=== PATIENT | male | born 1930 | race Caucasian/White ===

== ENCOUNTER 2016-03-31 10:13 | Inpatient (IN) | payer MEDICARE, OTHER ==
[~2016-03-31] VITALS: Ht 167.6 cm; Wt 63.5 kg
[~2016-03-31 10:13] MED LIST: AMIODARONE HCL100 MG ORAL; ASPIRIN81 M3 PO; COUMADIN1 MG ORAL; DEXILANT30 MG ORAL; METOPROLOL SUC200 MG ORAL; METOPROLOL SUCC25 MG ORAL; PROTONIX40 MG ORAL; REMERON15 M1 ORAL; SINEMET 25-1001 EAC1 ORAL; SINGULAIR10 MG ORAL; SINGULAIR4 M3 ORAL
[2016-03-31 10:30] VITALS: BP 168/76
[2016-03-31] MEDS ORDERED: Morphine Sulfate 4mg/ml Inj IVP ONE (11:00)
--- NOTE | 2016-03-31 11:17 | Emergency Room Report ---
History of Present Illness General Chief Complaint: Abdominal Pain Source: Patient, Family Member Present Illness HPI 85 YOM with parkinsons sent from PMD office Dr Vera for 1 week of RLQ pain and "rebound tenderness." Assoc with constipation for 2 days. Denies assoc n/v /d/fever/chills. ?past appendectomy; family denies previous other surgeries. No other known PMHx. Denies urinary complaints, previous hospitalization. Allergies: Coded Allergies: PENICILLINS (Unverified Adverse Reaction, Unknown, 06/18/15) Patient History Past Medical History: other - parkinsons Past Surgical History: appy Pertinent Family History: none Social History: Denies: alcohol use, drug use, smoking Immunizations: UTD Reviewed Nursing Documentation: PSxH: Agreed Nursing Documentation-PMH Past Medical History: No History, Except For Hx Hypertension: Yes Hx Pacemaker: Yes Hx Parkinson's Disease: Yes Review of Systems All Other Systems: negative except mentioned in HPI Physical Exam Vital Signs Date Time Temp Pulse Resp B/P Pulse Ox O2 Delivery O2 Flow Rate FiO2 03/31/16 10:19 98.1 70 14 141/73 98 Room Air Sp02 EP Interpretation: reviewed, normal General Appearance: normal inspection, well appearing, no apparent distress, alert Head: normocephalic, atraumatic Eyes: bilateral eye EOMI, bilateral eye PERRL ENT: normal ENT inspection, hearing grossly normal, normal voice Neck: normal inspection, full range of motion, supple, no bony tend Respiratory: normal inspection, lungs clear, normal breath sounds, no respiratory distress, no retraction, no wheezing Cardiovascular #1: regular rate, rhythm, no edema Gastrointestinal: normal inspection, normal bowel sounds, soft, no mass, no guarding, no hernia, no rebound, other - Mild RLQ ttp. No rebound, guarding. No palpable hernia in inguinal area. No overlying erythema. Genitourinary: no CVA tenderness Musculoskeletal: normal inspection, back normal, normal range of motion, Marquis' s Sign negative Neurologic: normal inspection, alert, oriented x3, responsive, front desk host III-XII nml as tested, motor strength/tone normal, speech normal Psychiatric: normal inspection, judgement/insight normal, mood/affect normal Skin: normal inspection, normal color, no rash Medical Decision Making Medicare Attestation I Kamilah Dick MD hereby attest that the medical record entry for date of service, 03/08/16 accurately reflects signatures/notations that I made in my capacity as MD when I treated/diagnosed the above listed Medicare beneficiary. I attest that this information is true, accurate and complete to the best of my knowledge. I understand that any falsification, omission, or concealment of material fact may subject me to administrative, civil, or criminal liability. This patient warrants hospital admission for extreme of age and has a condition that cannot be treated as outpatient. Diagnostic Impression: Primary Impression: Abdominal pain Qualified Codes: R10.31 - Right lower quadrant pain ER Course RLQ abd pain for 1 week. VSS. Afebrile focal ttp on exam. No peritoneal abdomen PLAN Cardiac, O2 monitor, IV access, Labs, CTAP, EKG EKG Diagnostic Results Rate: normal Rhythm: NSR ASA given to the pt in ED: No Rhythm Strip Diag. Results EP Interpretation: yes Rate: 70 Rhythm: NSR, no PVC's, no ectopy Last Vital Signs Date Time Temp Pulse Resp B/P Pulse Ox O2 Delivery O2 Flow Rate FiO2 03/31/16 10:30 98.0 70 15 168/76 99 Room Air Status: improved Reevaluation Impression Labs: No leuks. CMP normal. UA does not show infection CTAP: possible strangulation of right femoral vs inguinal hernia with stranding. No SBO. IV Abx and IVF given in ED Consulted Dr Gr at 1245pm for evaluation of possible strangulated right inguinal/femoral hernia Endorsed to Dr Brooks at 114pm (requested by FRANCISCO Vera). Disposition: ADMITTED INPATIENT Condition: Critical KAMILAH DICK M.D. Mar 31, 2016 11:17
[2016-03-31 11:27] LABS: BASOPHILS % (AUTO) 1.1 % (0.0-2.0); EOSINOPHILS % (AUTO) 1.4 % (0.0-3.0); LYMPHOCYTES % (AUTO) 13.5 % (20.0-45.0); MEAN CORPUSCULAR HEMOGLOBIN 31.3 PG (27.0-31.0); MEAN CORPUSCULAR HGB CONC 32.9 G/DL (32.0-36.0); MEAN CORPUSCULAR VOLUME 95 FL (80-99); MONOCYTES % (AUTO) 7.3 % (1.0-10.0); NEUTROPHILS % (AUTO) 76.7 % (45.0-75.0); PLATELET COUNT 140 K/UL (150-450); RED BLOOD COUNT 4.36 M/UL (4.70-6.10); RED CELL DISTRIBUTION WIDTH 12.3 % (11.6-14.8); WHITE BLOOD COUNT 6.2 K/UL (4.8-10.8)
[2016-03-31 11:33] LABS: APPEARANCE,URINE CLEAR; KETONES,URINE NEGATIVE (NEGATIVE); LEUKOCYTE ESTERASE ,URINE NEGATIVE (NEGATIVE); NITRITE,URINE NEGATIVE (NEGATIVE); PH,URINE 7 (4.5-8.0); PROTEIN,URINE NEGATIVE (NEGATIVE); UROBILINOGEN,URINE 1 MG/DL (0.0-1.0)
[2016-03-31 11:44] LABS: ALANINE AMINOTRANSFERASE 8 U/L (3-41); ALBUMIN/GLOBULIN RATIO 1.3 (1.0-2.7); ANION GAP 14 (5-15); ASPARTATE AMINO TRANSFERASE 20 U/L (5-40); CALCIUM 9.3 mg/dL (8.6-10.2); CARBON DIOXIDE 27 mEQ/L (20-30); CHLORIDE 93 mEQ/L (98-107); HEMOLYSIS 39; LIPASE 37 U/L (< 60); POTASSIUM 4.9 mEQ/L (3.4-4.9); SODIUM 134 mEQ/L (135-145); TOTAL PROTEIN 7.6 g/dL (6.6-8.7)
[2016-03-31 12:17] VITALS: BP 161/70
--- NOTE | 2016-03-31 12:30 | Diagnostic Imaging Report ---
Indications: Abdominal pain Technique: Continuous helical CT imaging of the abdomen and pelvis was performed with automatic exposure control following administration of nonionic IV contrast only, on a Siemens sensation [address] scanner. Axial and coronal images were reconstructed at 5 mm slice thickness. No oral contrast was administered per requesting physician's order, despite no contraindications listed in either submitted clinical data or tech note.. CTDI volume(s): 19 mGy Total DLP: 1016 mGy-cm Findings: Comparison: None Lack of oral contrast limits evaluation of gastrointestinal tract. Variable fecal distention of colon and rectum. Remainder of tract nondilated. Appendix not identified. Surgical clips adjacent to esophagogastric junction and gastric antrum. No obvious mural thickening, adjacent stranding, extraluminal gas or fluid collections. Gallbladder absent. Surgical clips in gallbladder fossa. Mild diffuse dilation of bile ducts without obvious associated stone or mass. Mild diffuse atrophy the pancreas. Multiple circumscribed low attenuation masses in both renal cortices, largest on right 7 cm. Smaller exophytic lesion on the left demonstrates partial mural calcification. Scattered arterial mural calcifications without obvious flow-limiting stenosis or occlusion. Hydronephrosis or 4P now a prosthesis in right iliac fossa. Small knuckle of urinary bladder protrudes into left inguinal versus femoral hernia. Mild adjacent stranding. Prostate, seminal vesicles absent. Multiple surgical clips in prostatic bed and along both iliac vessels. Additional surgical clips in the region of right inguinal canal. Remainder visualized pelvic anatomy demonstrates no other obvious acute abnormality. Increased interstitial markings and dependent portions both lung bases. Heart enlarged with right chamber pacemaker leads. Multilevel disc space narrowing with marginal osteophyte formation, vacuum phenomenon throughout lumbar, lower thoracic spine. No focal skeletal lesions are identified. IMPRESSION: Knuckle of urinary bladder incorporated into the left inguinal versus femoral hernia. Associated stranding is nonspecific but could represent strangulation or cystitis. Correlate clinically. No other evidence of acute abdominopelvic disease, limited by lack of oral contrast. Subtle but potentially significant abnormalities may be missed. Repeat CT scan with full oral and IV contrast preparation recommended for more complete evaluation, as clinically indicated Nonvisualization of appendix. No evidence of acute appendicitis. Previous gastric surgery, cholecystectomy, radical prostatectomy, placement of penile prosthesis, placement of pacemaker Bile duct dilation likely secondary to above. Correlate clinically. Pancreatic atrophy Bilateral renal cortical cysts Arteriosclerosis Constipation Nonspecific pulmonary bibasal interstitial prominence Cardiomegaly Degenerative spondylosis
[2016-03-31] MEDS ORDERED: Clindamycin 600mg 50 ML IVPB ONE (13:00)
[2016-03-31] MEDS ORDERED: MULTIVITAMINS1 EAC8 ORAL (13:23)
[2016-03-31] MEDS ORDERED: B-12 KIT1000 MCG/1 IJ (13:23)
[2016-03-31] MEDS ORDERED: SINEMET 25-1001 EAC1 ORAL (13:24)
[2016-03-31] MEDS ORDERED: DEXILANT60 MG ORAL (13:24)
[2016-03-31] MEDS ORDERED: LR 1000ml 1,000 ML IV SCH (13:45)
[2016-03-31 14:45] VITALS: BP 161/84
[2016-03-31] MEDS ORDERED: Morphine Sulfate 2mg/ml Inj IVP PRN (15:45)
[2016-03-31] MEDS ORDERED: D5 1/2NS w/KCl 20mEq 1,000 ML IV SCH (17:00)
[2016-03-31 18:07] VITALS: BP 164/86
[2016-03-31] MEDS: Amiodarone 200mg tab ORAL SCH (18:40)
[2016-03-31] MEDS: Multivitamin w/Minerals tab ORAL SCH (18:40)
[2016-03-31] MEDS: Sinemet 25/100 tab ORAL SCH (18:40)
[2016-03-31] MEDS: Aspirin Baby 81mg ORAL SCH (18:41)
[2016-03-31] MEDS: D5 1/2NS 1,000 ML IV SCH (18:42)
--- NOTE | 2016-03-31 18:57 | General Progress Note ---
Progress Note Progress Note Chart reviewed, pt examined. Pt has a fecal impaction. The CT finding of a left inguinal hernia with protrusion of a knuckle of urinary bladder is probably a chronic finding. We will need to correct his fecal impaction. There is no need for emergency surgery. Yaniv Gr MD Mar 31, 2016 18:57
[2016-03-31 20:00] VITALS: BP 151/78
[2016-03-31] MEDS: Heparin 5000 units/ml inj SUBQ SCH (21:17)
[2016-03-31] MEDS: Montelukast 10mg tablet ORAL SCH (21:17)
[2016-03-31] MEDS: Miralax 17gm pkt ORAL SCH (23:03)
--- NOTE | 2016-03-31 23:48 | Consultation ---
DATE OF CONSULTATION: 03/31/2016 SURGICAL CONSULTATION REASON FOR CONSULTATION: Abdominal pain and possible strangulated left inguinal hernia. HISTORY OF PRESENT ILLNESS: The patient is an 85-year-old [place] male, who presented with a one-week history of the right lower quadrant abdominal pain associated with a three-day history of obstipation. He denied any symptoms of nausea, vomiting, fever, or chills. He has a history of urinary incontinence. PAST MEDICAL HISTORY: Previous surgery includes a partial gastrectomy 30 years ago for peptic ulcer disease. Other surgery includes an open prostatectomy 20 years ago. He underwent a right inguinal hernia repair 15 years ago. The patient also had a previous cholecystectomy. Medical problems include Parkinson disease for 10 years. There is a history of asthma as well. Other surgery includes a pacemaker placement 10 years ago. MEDICATIONS: Include amiodarone 100 mg every 8 hours, aspirin 81 mg daily, Sinemet 25 to 100 mg three times a day, vitamin B12 1000 mcg every two weeks, Dexilant 30 mg daily, metoprolol 200 mg extended release one tablet daily, Remeron 15 mg at bedtime, Singulair 4 mg daily and 10 mg at bedtime, multivitamin one tablet daily, Protonix 40 mg daily, and Coumadin 1 mg daily. ALLERGIES: Penicillin. SOCIAL HISTORY: Tobacco, none. Alcohol, none. FAMILY HISTORY: Negative for diabetes, heart disease, or malignancy. REVIEW OF SYSTEMS: Includes occasional wheezing secondary to asthma. There is no history of angina. The patient denies any symptoms of left inguinal pain. He does have urinary incontinence. PHYSICAL EXAMINATION: GENERAL: Reveals an elderly white male, in no acute distress. VITAL SIGNS: Blood pressure 151/84, pulse 70, and respirations 12. HEENT: Normocephalic. Pupils are equal and reactive to light. There was no scleral icterus. NECK: Supple without adenopathy. LUNGS: Clear. HEART: Showed a regular rhythm. There is a pacemaker in place in the left upper chest wall. ABDOMEN: Abdomen was flat. There is an epigastric midline scar. There is a lower midline scar as well. There were no masses or tenderness. Palpation of the left inguinal region reveals some elements of a small inguinal hernia that is partially reducible. There is some tenderness noted on palpation in this area, but no evidence of an incarcerated or strangulated hernia. There was no evidence of a femoral hernia bilaterally. RECTAL: Rectal exam showed normal sphincter tone. There is soft doughy stool in the rectal vault. ADMISSION LABS: CBC showed a white blood count of 6200, hemoglobin 13.6 grams percent, hematocrit 41.4%, and platelet count 140,000. Urinalysis was negative. There was no blood. Dip stick was negative. There was 1+ urobilinogen. Leukocyte esterase is negative. Clinical chemistry showed a sodium of 134, potassium 4.9, chloride 93, bicarbonate 27, BUN 23, creatinine 1.0, glucose 103, and calcium 9.3. Total bilirubin 0.6. SGOT 8, SGPT 20, and alkaline phosphatase normal at 58. Lipase normal at 37. A CT scan of the abdomen and pelvis showed a knuckle of the urinary bladder incorporated into the left inguinal hernia. There was associated stranding, which is nonspecific. There was no evidence of intestinal obstruction. The gallbladder was surgically absent. There were surgical clips adjacent to the esophagogastric junction and gastric antrum. There was evidence of a previous radical prostatectomy as well as a penile prosthesis and the pacemaker was noted with leads in the right atrium. IMPRESSION: 1. Fecal impaction. 2. Left inguinal hernia with protrusion of a knuckle of the urinary bladder, probably chronic. PLAN: There is no need for emergency surgery in the setting. The patient will need enemas and/or laxatives to relieve his fecal impaction. He will need to continue his medications for his Parkinson disease and hypertension. Yaniv Gr M.D. DR: DAYO JOB#: [id number] CC:
[2016-03-31 23:54] VITALS: BP 106/61
[2016-04-01 04:00] VITALS: BP 95/56
[2016-04-01] MEDS: D5 1/2NS 1,000 ML IV SCH ×2 (05:01→19:10)
[2016-04-01] MEDS: Heparin 5000 units/ml inj SUBQ SCH ×3 (05:07→21:32)
[2016-04-01 06:55] LABS: EOSINOPHILS % (AUTO) 2.8 % (0.0-3.0); LYMPHOCYTES % (AUTO) 19.2 % (20.0-45.0); MEAN CORPUSCULAR HEMOGLOBIN 31.7 PG (27.0-31.0); MEAN CORPUSCULAR HGB CONC 33.8 G/DL (32.0-36.0); MEAN CORPUSCULAR VOLUME 94 FL (80-99); MONOCYTES % (AUTO) 13.1 % (1.0-10.0); NEUTROPHILS % (AUTO) 63.8 % (45.0-75.0); PLATELET COUNT 131 K/UL (150-450); RED BLOOD COUNT 3.91 M/UL (4.70-6.10); RED CELL DISTRIBUTION WIDTH 12.5 % (11.6-14.8)
[2016-04-01 06:57] LABS: ALBUMIN/GLOBULIN RATIO 1.3 (1.0-2.7); ANION GAP 10 (5-15); ASPARTATE AMINO TRANSFERASE 16 U/L (5-40); CALCIUM 8.4 mg/dL (8.6-10.2); CARBON DIOXIDE 28 mEQ/L (20-30); CHLORIDE 100 mEQ/L (98-107); CREATININE 0.9 mg/dL (0.7-1.2); HEMOLYSIS 9; POTASSIUM 4.4 mEQ/L (3.4-4.9); SODIUM 138 mEQ/L (135-145); TOTAL PROTEIN 6.1 g/dL (6.6-8.7)
[2016-04-01 06:58] LABS: ALANINE AMINOTRANSFERASE < 5 U/L (3-41)
[2016-04-01] MEDS ORDERED: Fleet's Mineral Oil Enema RECTAL ONE ×2 (08:30)
[2016-04-01 08:46] VITALS: BP 135/90
[2016-04-01] MEDS: Amiodarone 200mg tab ORAL SCH ×2 (09:00→11:50)
[2016-04-01] MEDS: Docusate 100mg cap ORAL SCH ×3 (09:01→18:06)
[2016-04-01] MEDS: Aspirin Baby 81mg ORAL SCH (09:01)
[2016-04-01] MEDS: Sinemet 25/100 tab ORAL SCH ×3 (09:01→18:06)
[2016-04-01] MEDS: Multivitamin w/Minerals tab ORAL SCH (09:02)
[2016-04-01] MEDS: Pantoprazole Inj IV SCH (09:20)
--- NOTE | 2016-04-01 10:19 | General Progress Note ---
Progress Note Progress Note Afebrile. Pt is awake, has some pain in right lower abdomen. He has not had a BM yet. Abdomen is mildly distended but soft, left inguinal region is not tender. CT scan was reviewed with the radiologist. The left inguinal bladder herniation appears to be a chronic problem. Case was discussed with Dr Villeda, we will try magnesium sulfate to relieve his obstipation. Yaniv Gr MD Apr 01, 2016 10:19
[2016-04-01] MEDS ORDERED: Magnesium Citrate Liq Btl ORAL ONE (11:00)
[2016-04-01 12:46] VITALS: BP 135/75
--- NOTE | 2016-04-01 13:31 | History and Physical ---
LeslieBreana Kruegeroi NElva 04/01/16 1331: History of Present Illness General Date patient seen: Apr 01, 2016 Time patient seen: 10:00 Reason for Hospitalization: Abdominal Pain Present Illness HPI HISTORY OF PRESENT ILLNESS: The patient is an 85-year-old [place] male, who presented with a one-week history of the right lower quadrant abdominal pain associated with a three-day history of obstipation. He denied any symptoms of nausea, vomiting, fever, or chills. He has a history of urinary incontinence. Allergies: Coded Allergies: PENICILLINS (Unverified Adverse Reaction, Unknown, 06/18/15) Medication History Scheduled Amiodarone Hcl (Amiodarone Hcl), Unknown Dose ORAL EVERY 8 HOURS, (Reported) Amiodarone Hcl (Amiodarone Hcl), 150 MG ORAL DAILY, (Reported) Amiodarone Hcl (Amiodarone Hcl), 100 MG ORAL DAILY, (Reported) Carbidopa/Levodopa 25-100 Mg* (Sinemet 25-100 Mg Tablet*), 3 TAB ORAL THREE TIMES A DAY, (Reported) Carbidopa/Levodopa 25-100 Mg* (Sinemet 25-100 Mg Tablet*), 3 TAB ORAL THREE TIMES A DAY, (Reported) Cyanocobalamin (Vitamin B-12) (B-12 Kit), 1,000 MCG IJ EVERY 2 WEEKS, (Reported) Dexlansoprazole (Dexilant), Unknown Dose ORAL DAILY, (Reported) Dexlansoprazole (Dexilant), 60 MG ORAL DAILY, (Reported) Metoprolol Succinate (Metoprolol Succinate), Unknown Dose ORAL DAILY, (Reported) Metoprolol Succinate* (Metoprolol Succinate*), 25 MG ORAL DAILY, (Reported) Mirtazapine (Remeron), Unknown Dose ORAL BEDTIME, (Reported) Montelukast Sodium (Singulair), Unknown Dose ORAL DAILY, (Reported) Montelukast Sodium* (Singulair*), 10 MG ORAL BEDTIME, (Reported) Multivitamin With Minerals (Multivitamins With Minerals*), 1 TAB ORAL DAILY, ( Reported) Pantoprazole* (Protonix*), 40 MG ORAL DAILY, (Reported) Warfarin Sod* (Coumadin*), Unknown Dose ORAL DAILY, (Reported) Miscellaneous Medications Aspirin (Aspirin), 81 MG PO, (Reported) Patient History Limited by: medical condition History Provided By: Patient, Medical Record Healthcare decision maker KAMILAH NORMA Resuscitation status FULL Advanced Directive on File Patient History Narrative PAST MEDICAL HISTORY: Previous surgery includes a partial gastrectomy 30 years ago for peptic ulcer disease. Other surgery includes an open prostatectomy 20 years ago. He underwent a right inguinal hernia repair 15 years ago. The patient also had a previous cholecystectomy. Medical problems include Parkinson disease for 10 years. There is a history of asthma as well. Other surgery includes a pacemaker placement 10 years ago. Review of Systems All Other Systems: negative except mentioned in HPI Physical Exam General Appearance: no apparent distress, alert, thin Lines, tubes and drains: peripheral HEENT: normocephalic, supple Neck: non-tender, supple Respiratory/Chest: lungs clear, normal breath sounds, no respiratory distress Cardiovascular/Chest: normal rate Abdomen: normal bowel sounds, non tender, soft, distended, other - RLQ mild distention Extremities: non-tender, normal capillary refill Skin Exam: normal pigmentation, warm/dry Neurologic: alert, oriented x 3 Last 24 Hour Vital Signs Date Time Temp Pulse Resp B/P Pulse Ox O2 Delivery O2 Flow Rate FiO2 04/01/16 12:46 96.1 89 18 135/75 97 Room Air 04/01/16 09:01 64 135/90 04/01/16 08:46 97.0 64 19 135/90 97 Room Air 04/01/16 04:00 96.4 80 18 95/56 94 Room Air 03/31/16 23:54 97.5 111 18 106/61 96 Room Air 03/31/16 20:00 97.7 71 20 151/78 95 Room Air 03/31/16 18:41 70 164/86 03/31/16 18:07 97.5 70 20 164/86 96 Room Air 03/31/16 14:45 70 12 161/84 98 Room Air 03/31/16 14:16 70 12 174/79 98 Room Air Intake and Output 03/31/16 04/01/16 19:00 07:00 Intake Total 0 ml 825 ml Output Total 925 ml Balance 0 ml -100 ml Intake Oral 0 ml IV Total 825 ml Output Urine Total 925 ml # Voids 3 Laboratory Tests Test 04/01/16 05:20 White Blood Count 5.0 K/UL (4.8-10.8) Red Blood Count 3.91 M/UL (4.70-6.10) L Hemoglobin 12.4 G/DL (14.2-18.0) L Hematocrit 36.7 % (42.0-52.0) L Mean Corpuscular Volume 94 FL (80-99) Mean Corpuscular Hemoglobin 31.7 PG (27.0-31.0) H Mean Corpuscular Hemoglobin Concent 33.8 G/DL (32.0-36.0) Red Cell Distribution Width 12.5 % (11.6-14.8) Platelet Count 131 K/UL (150-450) L Mean Platelet Volume 9.0 FL (6.5-10.1) Neutrophils (%) (Auto) 63.8 % (45.0-75.0) Lymphocytes (%) (Auto) 19.2 % (20.0-45.0) L Monocytes (%) (Auto) 13.1 % (1.0-10.0) H Eosinophils (%) (Auto) 2.8 % (0.0-3.0) Basophils (%) (Auto) 1.0 % (0.0-2.0) Sodium Level 138 mEQ/L (135-145) Potassium Level 4.4 mEQ/L (3.4-4.9) Chloride Level 100 mEQ/L (98-107) Carbon Dioxide Level 28 mEQ/L (20-30) Anion Gap 10 (5-15) Blood Urea Nitrogen 16 mg/dL (7-23) Creatinine 0.9 mg/dL (0.7-1.2) Estimat Glomerular Filtration Rate mL/min (>60) Glucose Level 127 mg/dL (74-106) H Calcium Level 8.4 mg/dL (8.6-10.2) L Total Bilirubin 0.6 mg/dL (0.0-1.2) Aspartate Amino Transf (AST/SGOT) 16 U/L (5-40) Alanine Aminotransferase (ALT/SGPT) < 5 U/L (3-41) Alkaline Phosphatase 49 U/L (40-129) Total Protein 6.1 g/dL (6.6-8.7) L Albumin 3.5 g/dL (3.5-5.2) Globulin 2.6 g/dL Albumin/Globulin Ratio 1.3 (1.0-2.7) Microbiology Date/Time Source Procedure Growth Status 03/31/16 21:30 Straight Cath Urine Culture Pending Received Height (Feet): 5 Height (Inches): 6.00 Weight (Pounds): 140 Medications Current Medications Medications (Trade) Dose Ordered Sig/Jaquelin Route PRN Reason Start Time Stop Time Status Last Admin Dose Admin Amiodarone HCl (Cordarone) 100 mg DAILY ORAL 03/31/16 17:00 04/30/16 16:59 04/01/16 11:50 Aspirin (ASA) 81 mg DAILY ORAL 03/31/16 17:00 04/30/16 16:59 04/01/16 09:01 Carbidopa/Levodopa (Sinemet 25/100) 3 ea THREE TIMES A DAY ORAL 03/31/16 18:00 04/30/16 17:59 04/01/16 09:01 Cyanocobalamin 1000 mcg 1,000 mcg [id number] IM 04/11/16 09:00 05/11/16 08:59 Dextrose (Dextrose 50%) STAT PRN IV Hypoglycemia 03/31/16 15:45 04/30/16 15:44 Dextrose/Sodium Chloride (D5 0.45% NS) 1,000 ml @ 75 mls/hr [id number] IV 03/31/16 16:30 04/30/16 16:29 04/01/16 05:01 Docusate Sodium (Colace) 100 mg THREE TIMES A DAY ORAL 04/01/16 09:00 05/01/16 08:59 04/01/16 09:01 Heparin Sodium (Porcine) (Heparin 5000 units/ml) 5,000 units EVERY 8 HOURS SUBQ 03/31/16 22:00 04/30/16 21:59 Metoprolol Succinate (Toprol XL) 25 mg DAILY ORAL 03/31/16 17:00 04/30/16 16:59 04/01/16 09:01 Montelukast Sodium (Singulair) 10 mg BEDTIME ORAL 03/31/16 21:00 04/30/16 20:59 03/31/16 21:17 Morphine Sulfate (Morphine Sulfate) 2 mg Q4H PRN IVP Moderate Pain (Pain Scale 4-6) 03/31/16 15:45 04/07/16 15:44 Multivitamins Therapeutic (Therapeutic Multivitamin) 1 ea DAILY ORAL 03/31/16 17:00 04/30/16 16:59 04/01/16 09:02 Ondansetron HCl (Zofran) 4 mg Q6H PRN IVP Nausea & Vomiting 03/31/16 15:45 04/30/16 15:44 Pantoprazole (Protonix) 40 mg DAILY IV 04/01/16 09:00 05/01/16 08:59 04/01/16 09:20 Polyethylene Glycol (Miralax) 17 gm BEDTIME ORAL 03/31/16 23:00 04/30/16 22:59 03/31/16 23:03 Assessment/Plan Problem List: (1) Fecal impaction ICD Codes: K56.41 - Fecal impaction SNOMED: 94723753 (2) Chest pain ICD Codes: R07.9 - Chest pain, unspecified SNOMED: 47102550 (3) ACS (acute coronary syndrome) ICD Codes: I24.9 - Acute ischemic heart disease, unspecified SNOMED: 949185288 (4) Parkinson disease ICD Codes: G20 - Parkinson's disease SNOMED: 20424467 (5) Abdominal pain ICD Codes: R10.9 - Unspecified abdominal pain SNOMED: 22976627 Qualifiers: Qualified Codes: R10.31 - Right lower quadrant pain (6) Hernia with strangulation ICD Codes: K46.0 - Unspecified abdominal hernia with obstruction, without gangrene SNOMED: 03418862, 803933532 Status: stable Status Narrative Seen with Dr. Villeda. Assessment/Plan surgical consulted appreciated >> no need for emergency surgery, fecal impaction ordered fleets x 1, mag citrate x 1 ordered bowel regime; colace + miralax adv to cardiac diet monitor H&H, transfuse prn ppi fu labs GISSELL VILLEDA 04/02/16 1042: History of Present Illness General Reason for Hospitalization: Abdominal Pain Present Illness Allergies: Coded Allergies: PENICILLINS (Unverified Adverse Reaction, Unknown, 06/18/15) Medication History Scheduled Amiodarone Hcl (Amiodarone Hcl), Unknown Dose ORAL EVERY 8 HOURS, (Reported) Amiodarone Hcl (Amiodarone Hcl), 150 MG ORAL DAILY, (Reported) Amiodarone Hcl (Amiodarone Hcl), 100 MG ORAL DAILY, (Reported) Carbidopa/Levodopa 25-100 Mg* (Sinemet 25-100 Mg Tablet*), 3 TAB ORAL THREE TIMES A DAY, (Reported) Carbidopa/Levodopa 25-100 Mg* (Sinemet 25-100 Mg Tablet*), 3 TAB ORAL THREE TIMES A DAY, (Reported) Cyanocobalamin (Vitamin B-12) (B-12 Kit), 1,000 MCG IJ EVERY 2 WEEKS, (Reported) Dexlansoprazole (Dexilant), Unknown Dose ORAL DAILY, (Reported) Dexlansoprazole (Dexilant), 60 MG ORAL DAILY, (Reported) Metoprolol Succinate (Metoprolol Succinate), Unknown Dose ORAL DAILY, (Reported) Metoprolol Succinate* (Metoprolol Succinate*), 25 MG ORAL DAILY, (Reported) Mirtazapine (Remeron), Unknown Dose ORAL BEDTIME, (Reported) Montelukast Sodium (Singulair), Unknown Dose ORAL DAILY, (Reported) Montelukast Sodium* (Singulair*), 10 MG ORAL BEDTIME, (Reported) Multivitamin With Minerals (Multivitamins With Minerals*), 1 TAB ORAL DAILY, ( Reported) Pantoprazole* (Protonix*), 40 MG ORAL DAILY, (Reported) Warfarin Sod* (Coumadin*), Unknown Dose ORAL DAILY, (Reported) Miscellaneous Medications Aspirin (Aspirin), 81 MG PO, (Reported) Assessment/Plan Assessment/Plan The patient was seen and examined at bedside and all new and available data was reviewed in the patients chart. I agree with the above findings, impression and plan. (Patient seen earlier today. Signature stamp does not reflect patient encounter time.). -Breana Koehler MD N.PKenya Apr 01, 2016 13:31 GISSELL VILLEDA Apr 02, 2016 10:42
[2016-04-01 16:00] VITALS: BP 97/65
[2016-04-01 20:00] VITALS: BP 129/60
[2016-04-01] MEDS: Miralax 17gm pkt ORAL SCH (20:28)
[2016-04-01] MEDS: Montelukast 10mg tablet ORAL SCH (20:28)
[2016-04-02] MEDS: D5 1/2NS 1,000 ML IV SCH ×2 (01:25→13:43)
[2016-04-02 04:00] VITALS: BP 108/64
[2016-04-02] MEDS: Heparin 5000 units/ml inj SUBQ SCH ×3 (06:00→21:14)
[2016-04-02 07:09] LABS: BASOPHILS % (AUTO) 1.1 % (0.0-2.0); EOSINOPHILS % (AUTO) 2.9 % (0.0-3.0); LYMPHOCYTES % (AUTO) 19.3 % (20.0-45.0); MEAN CORPUSCULAR HEMOGLOBIN 32.1 PG (27.0-31.0); MEAN CORPUSCULAR HGB CONC 33.8 G/DL (32.0-36.0); MEAN CORPUSCULAR VOLUME 95 FL (80-99); MEAN PLATELET VOLUME 8.9 FL (6.5-10.1); MONOCYTES % (AUTO) 12.7 % (1.0-10.0); PLATELET COUNT 126 K/UL (150-450); RED BLOOD COUNT 3.69 M/UL (4.70-6.10); RED CELL DISTRIBUTION WIDTH 12.2 % (11.6-14.8); WHITE BLOOD COUNT 6.1 K/UL (4.8-10.8)
[2016-04-02 07:35] LABS: ANION GAP 10 (5-15); CALCIUM 8.1 mg/dL (8.6-10.2); CARBON DIOXIDE 27 mEQ/L (20-30); CHLORIDE 100 mEQ/L (98-107); MAGNESIUM 2.3 mg/dL (1.7-2.5); PHOSPHORUS 2.5 mg/dL (2.5-4.8); POTASSIUM 4.4 mEQ/L (3.4-4.9); SODIUM 137 mEQ/L (135-145)
[2016-04-02 07:45] LABS: HEMOLYSIS 13; IRON 42 ug/dL (59-158); TOTAL IRON BINDING CAPACITY 199 ug/dL (250-400)
[2016-04-02 08:00] VITALS: BP 136/72
--- NOTE | 2016-04-02 08:03 | General Progress Note ---
Progress Note Progress Note we had been asked to see pt for possible strangulated hernia. ct had shown small lih with a small part of bladder in it. reviewed with radiologist On exam abd is soft, nontender. small hernia appreciated but no evidence of incarceration or strangulation.May conxside elective repair. Labs Test 03/31/16 10:50 03/31/16 11:27 04/01/16 05:20 04/02/16 05:35 White Blood Count 6.2 K/UL (4.8-10.8) 5.0 K/UL (4.8-10.8) 6.1 K/UL (4.8-10.8) Red Blood Count 4.36 M/UL (4.70-6.10) 3.91 M/UL (4.70-6.10) 3.69 M/UL (4.70-6.10) Hemoglobin 13.6 G/DL (14.2-18.0) 12.4 G/DL (14.2-18.0) 11.9 G/DL (14.2-18.0) Hematocrit 41.4 % (42.0-52.0) 36.7 % (42.0-52.0) 35.0 % (42.0-52.0) Mean Corpuscular Volume 95 FL (80-99) 94 FL (80-99) 95 FL (80-99) Mean Corpuscular Hemoglobin 31.3 PG (27.0-31.0) 31.7 PG (27.0-31.0) 32.1 PG (27.0-31.0) Mean Corpuscular Hemoglobin Concent 32.9 G/DL (32.0-36.0) 33.8 G/DL (32.0-36.0) 33.8 G/DL (32.0-36.0) Red Cell Distribution Width 12.3 % (11.6-14.8) 12.5 % (11.6-14.8) 12.2 % (11.6-14.8) Platelet Count 140 K/UL (150-450) 131 K/UL (150-450) 126 K/UL (150-450) Mean Platelet Volume 9.0 FL (6.5-10.1) 9.0 FL (6.5-10.1) 8.9 FL (6.5-10.1) Neutrophils (%) (Auto) 76.7 % (45.0-75.0) 63.8 % (45.0-75.0) 64.0 % (45.0-75.0) Lymphocytes (%) (Auto) 13.5 % (20.0-45.0) 19.2 % (20.0-45.0) 19.3 % (20.0-45.0) Monocytes (%) (Auto) 7.3 % (1.0-10.0) 13.1 % (1.0-10.0) 12.7 % (1.0-10.0) Eosinophils (%) (Auto) 1.4 % (0.0-3.0) 2.8 % (0.0-3.0) 2.9 % (0.0-3.0) Basophils (%) (Auto) 1.1 % (0.0-2.0) 1.0 % (0.0-2.0) 1.1 % (0.0-2.0) Sodium Level 134 mEQ/L (135-145) 138 mEQ/L (135-145) 137 mEQ/L (135-145) Potassium Level 4.9 mEQ/L (3.4-4.9) 4.4 mEQ/L (3.4-4.9) 4.4 mEQ/L (3.4-4.9) Chloride Level 93 mEQ/L (98-107) 100 mEQ/L (98-107) 100 mEQ/L (98-107) Carbon Dioxide Level 27 mEQ/L (20-30) 28 mEQ/L (20-30) 27 mEQ/L (20-30) Anion Gap 14 (5-15) 10 (5-15) 10 (5-15) Blood Urea Nitrogen 23 mg/dL (7-23) 16 mg/dL (7-23) 23 mg/dL (7-23) Creatinine 1.0 mg/dL (0.7-1.2) 0.9 mg/dL (0.7-1.2) 1.0 mg/dL (0.7-1.2) Estimat Glomerular Filtration Rate mL/min (>60) mL/min (>60) mL/min (>60) Glucose Level 103 mg/dL (74-106) 127 mg/dL (74-106) 138 mg/dL (74-106) Calcium Level 9.3 mg/dL (8.6-10.2) 8.4 mg/dL (8.6-10.2) 8.1 mg/dL (8.6-10.2) Total Bilirubin 0.6 mg/dL (0.0-1.2) 0.6 mg/dL (0.0-1.2) Aspartate Amino Transf (AST/SGOT) 20 U/L (5-40) 16 U/L (5-40) Alanine Aminotransferase (ALT/SGPT) 8 U/L (3-41) < 5 U/L (3-41) Alkaline Phosphatase 58 U/L (40-129) 49 U/L (40-129) Total Protein 7.6 g/dL (6.6-8.7) 6.1 g/dL (6.6-8.7) Albumin 4.3 g/dL (3.5-5.2) 3.5 g/dL (3.5-5.2) Globulin 3.3 g/dL 2.6 g/dL Albumin/Globulin Ratio 1.3 (1.0-2.7) 1.3 (1.0-2.7) Lipase 37 U/L (< 60) Urine Color Yellow Urine Appearance Clear Urine pH 7 (4.5-8.0) Urine Specific [place] 1.010 (1.005-1.035) Urine Protein Negative (NEGATIVE) Urine Glucose (UA) Negative (NEGATIVE) Urine Ketones Negative (NEGATIVE) Urine Occult Blood Negative (NEGATIVE) Urine Nitrite Negative (NEGATIVE) Urine Bilirubin Negative (NEGATIVE) Urine Urobilinogen 1 MG/DL (0.0-1.0) Urine Leukocyte Esterase Negative (NEGATIVE) Phosphorus Level 2.5 mg/dL (2.5-4.8) Magnesium Level 2.3 mg/dL (1.7-2.5) Iron Level 42 ug/dL (59-158) Total Iron Binding Capacity 199 ug/dL (250-400) Percent Iron Saturation 21 % (15-50) Unsaturated Iron Binding 157 ug/dL (112-346) GABY ARROYO Apr 02, 2016 08:03
[2016-04-02] MEDS: Docusate 100mg cap ORAL SCH ×3 (08:36→17:30)
[2016-04-02] MEDS: Aspirin Baby 81mg ORAL SCH (08:36)
[2016-04-02] MEDS: Sinemet 25/100 tab ORAL SCH ×3 (08:36→17:30)
[2016-04-02] MEDS: Multivitamin w/Minerals tab ORAL SCH (08:36)
[2016-04-02] MEDS: Amiodarone 200mg tab ORAL SCH (08:37)
[2016-04-02] MEDS: Pantoprazole Inj IV SCH (09:53)
[2016-04-02] MEDS: Lactulose 20gm/30ml UDC ORAL SCH ×3 (11:47→17:30)
[2016-04-02 12:00] VITALS: BP 130/65
--- NOTE | 2016-04-02 12:43 | GI Progress Note ---
Assessment/Plan Problems: (1) Fecal impaction ICD Codes: K56.41 - Fecal impaction SNOMED: 11517185 (2) Chest pain ICD Codes: R07.9 - Chest pain, unspecified SNOMED: 99151618 (3) ACS (acute coronary syndrome) ICD Codes: I24.9 - Acute ischemic heart disease, unspecified SNOMED: 356663302 (4) Parkinson disease ICD Codes: G20 - Parkinson's disease SNOMED: 28968818 (5) Abdominal pain ICD Codes: R10.9 - Unspecified abdominal pain SNOMED: 80375861 Qualifiers: Qualified Codes: R10.31 - Right lower quadrant pain (6) Hernia with strangulation ICD Codes: K46.0 - Unspecified abdominal hernia with obstruction, without gangrene SNOMED: 43618677, 969503875 Status: unchanged Status Narrative Discussed with Dr. Villeda. Assessment/Plan surgical consulted appreciated >> no need for emergency surgery, fecal impaction pt had no BM yesterday after fleets + mag citrate ordered bowel flush >> 2L Golytely bowel regime; colace + miralax, added lactulose today cardiac diet monitor H&H, transfuse prn ppi fu labs PT The patient was seen and examined at bedside and all new and available data was reviewed in the patients chart. I agree with the above findings, impression and plan. (Patient seen earlier today. Signature stamp does not reflect patient encounter time.). -Ean Villeda MD Subjective Gastrointestinal/Abdominal: Reports: no symptoms Objective Last 24 Hour Vital Signs Date Time Temp Pulse Resp B/P Pulse Ox O2 Delivery O2 Flow Rate FiO2 04/02/16 08:36 66 136/72 04/02/16 08:00 98.0 66 20 136/72 97 Room Air 04/02/16 04:00 97.8 70 18 108/64 94 Room Air 04/01/16 20:00 96.6 70 20 129/60 95 Room Air 04/01/16 16:00 97.5 84 18 97/65 94 Room Air 04/01/16 12:46 96.1 89 18 135/75 97 Room Air Intake and Output 04/01/16 04/02/16 19:00 07:00 Intake Total 375 ml 1230 ml Output Total 900 ml Balance 375 ml 330 ml Intake Oral 330 ml IV Total 375 ml 900 ml Output Urine Total 900 ml # Voids 2 Laboratory Tests Test 04/02/16 05:35 White Blood Count 6.1 K/UL (4.8-10.8) Red Blood Count 3.69 M/UL (4.70-6.10) L Hemoglobin 11.9 G/DL (14.2-18.0) L Hematocrit 35.0 % (42.0-52.0) L Mean Corpuscular Volume 95 FL (80-99) Mean Corpuscular Hemoglobin 32.1 PG (27.0-31.0) H Mean Corpuscular Hemoglobin Concent 33.8 G/DL (32.0-36.0) Red Cell Distribution Width 12.2 % (11.6-14.8) Platelet Count 126 K/UL (150-450) L Mean Platelet Volume 8.9 FL (6.5-10.1) Neutrophils (%) (Auto) 64.0 % (45.0-75.0) Lymphocytes (%) (Auto) 19.3 % (20.0-45.0) L Monocytes (%) (Auto) 12.7 % (1.0-10.0) H Eosinophils (%) (Auto) 2.9 % (0.0-3.0) Basophils (%) (Auto) 1.1 % (0.0-2.0) Sodium Level 137 mEQ/L (135-145) Potassium Level 4.4 mEQ/L (3.4-4.9) Chloride Level 100 mEQ/L (98-107) Carbon Dioxide Level 27 mEQ/L (20-30) Anion Gap 10 (5-15) Blood Urea Nitrogen 23 mg/dL (7-23) Creatinine 1.0 mg/dL (0.7-1.2) Estimat Glomerular Filtration Rate mL/min (>60) Glucose Level 138 mg/dL (74-106) H Calcium Level 8.1 mg/dL (8.6-10.2) L Phosphorus Level 2.5 mg/dL (2.5-4.8) Magnesium Level 2.3 mg/dL (1.7-2.5) Iron Level 42 ug/dL (59-158) L Total Iron Binding Capacity 199 ug/dL (250-400) L Percent Iron Saturation 21 % (15-50) Unsaturated Iron Binding 157 ug/dL (112-346) Height (Feet): 5 Height (Inches): 6.00 Weight (Pounds): 140 General Appearance: no apparent distress, alert Cardiovascular: normal rate Respiratory/Chest: normal breath sounds, no respiratory distress Abdominal Exam: normal bowel sounds, non tender, soft Objective No BM per RN report Breana Nelson N.P. Apr 02, 2016 12:42 EAN VILLEDA Apr 07, 2016 12:15
[2016-04-02] MEDS ORDERED: Nulytely 4L ORAL ONE (13:00)
--- NOTE | 2016-04-02 14:04 | Cardiology Report ---
APPROVED REPORT EKG Measurement Heart [id number] CT 222P78 [id number] Atrial Pacemaker Abnormal ECG
[2016-04-02 16:00] VITALS: BP 140/72
[2016-04-02 19:00] VITALS: BP 156/81
[2016-04-02] MEDS: Montelukast 10mg tablet ORAL SCH (21:43)
[2016-04-02] MEDS: Miralax 17gm pkt ORAL SCH (21:43)
[2016-04-03] VITALS (7 sets, daily range): BP systolic 112–158; BP diastolic 63–78
[2016-04-03] MEDS: D5 1/2NS 1,000 ML IV SCH (04:00)
[2016-04-03] MEDS: guaiFENesin 600mg tab ORAL SCH ×3 (05:41→21:38)
[2016-04-03] MEDS: Heparin 5000 units/ml inj SUBQ SCH ×3 (05:47→20:51)
[2016-04-03 06:54] LABS: BASOPHILS % (AUTO) 0.8 % (0.0-2.0); EOSINOPHILS % (AUTO) 3.9 % (0.0-3.0); LYMPHOCYTES % (AUTO) 19.9 % (20.0-45.0); MEAN CORPUSCULAR HEMOGLOBIN 31.9 PG (27.0-31.0); MEAN CORPUSCULAR HGB CONC 33.8 G/DL (32.0-36.0); MEAN CORPUSCULAR VOLUME 94 FL (80-99); MEAN PLATELET VOLUME 9.2 FL (6.5-10.1); MONOCYTES % (AUTO) 9.7 % (1.0-10.0); NEUTROPHILS % (AUTO) 65.8 % (45.0-75.0); PLATELET COUNT 136 K/UL (150-450); RED BLOOD COUNT 3.83 M/UL (4.70-6.10); RED CELL DISTRIBUTION WIDTH 12.1 % (11.6-14.8); WHITE BLOOD COUNT 5.3 K/UL (4.8-10.8)
[2016-04-03 07:26] LABS: ANION GAP 13 (5-15); CALCIUM 8.3 mg/dL (8.6-10.2); CARBON DIOXIDE 25 mEQ/L (20-30); CHLORIDE 99 mEQ/L (98-107); CREATININE 0.8 mg/dL (0.7-1.2); HEMOLYSIS 8; POTASSIUM 4.3 mEQ/L (3.4-4.9); SODIUM 137 mEQ/L (135-145)
[2016-04-03] MEDS: Pantoprazole Inj IV SCH (08:50)
[2016-04-03] MEDS: Aspirin Baby 81mg ORAL SCH (08:53)
[2016-04-03] MEDS: Sinemet 25/100 tab ORAL SCH ×3 (08:53→18:43)
[2016-04-03] MEDS: Multivitamin w/Minerals tab ORAL SCH (08:54)
[2016-04-03] MEDS: Lactulose 20gm/30ml UDC ORAL SCH ×3 (08:54→18:43)
[2016-04-03] MEDS: Docusate 100mg cap ORAL SCH ×3 (08:54→18:43)
[2016-04-03] MEDS: Amiodarone 200mg tab ORAL SCH (08:54)
--- NOTE | 2016-04-03 12:47 | General Progress Note ---
Progress Note Progress Note Afebrile. Awake and alert, sitting up and eating lunch. He continues to c/o rt sided abdominal pain. Abdomen is soft. CBC is okay. He has a left inguinal hernia which is asymptomatic. He will continue on laxatives for his fecal impaction. There is no need for surgery at this time. Yaniv Gr MD Apr 03, 2016 12:47
[2016-04-03] MEDS ORDERED: D5 1/2NS 1000ml IV ONE (18:24)
[2016-04-03] MEDS: Miralax 17gm pkt ORAL SCH (21:35)
[2016-04-03] MEDS: Montelukast 10mg tablet ORAL SCH (21:35)
--- NOTE | 2016-04-03 22:54 | General Progress Note ---
Subjective Allergies: Coded Allergies: PENICILLINS (Unverified Adverse Reaction, Unknown, 06/18/15) Subjective OOB in chair Objective Last 24 Hour Vital Signs Date Time Temp Pulse Resp B/P Pulse Ox O2 Delivery O2 Flow Rate FiO2 04/03/16 20:00 97.2 70 18 143/78 97 Room Air 04/03/16 16:30 97.0 70 18 158/63 97 Room Air 04/03/16 12:09 96.4 74 18 112/78 99 Room Air 04/03/16 08:53 70 138/75 04/03/16 08:00 96.8 70 18 138/75 96 Room Air 04/03/16 04:00 97.3 70 18 140/78 97 Room Air 04/03/16 00:00 96.8 70 18 147/67 96 Room Air Intake and Output 04/02/16 04/03/16 19:00 07:00 Intake Total 1500 ml 1185 ml Output Total 1075 ml 800 ml Balance 425 ml 385 ml Intake Oral 600 ml 360 ml IV Total 900 ml 825 ml Output Urine Total 1075 ml 800 ml # Voids 3 # Bowel Movements 2 Laboratory Tests 04/03/16 04:55: White Blood Count 5.3, Red Blood Count 3.83L, Hemoglobin 12.2L, Hematocrit 36.2L , Mean Corpuscular Volume 94, Mean Corpuscular Hemoglobin 31.9H, Mean Corpuscular Hemoglobin Concent 33.8, Red Cell Distribution Width 12.1, Platelet Count 136L, Mean Platelet Volume 9.2, Neutrophils (%) (Auto) 65.8, Lymphocytes ( %) (Auto) 19.9L, Monocytes (%) (Auto) 9.7, Eosinophils (%) (Auto) 3.9H, Basophils (%) (Auto) 0.8, Sodium Level 137, Potassium Level 4.3, Chloride Level 99, Carbon Dioxide Level 25, Anion Gap 13, Blood Urea Nitrogen 15, Creatinine 0.8, Estimat Glomerular Filtration Rate , Glucose Level 114H, Calcium Level 8.3L Height (Feet): 5 Height (Inches): 6.00 Weight (Pounds): 140 ANJALI LOPEZ Apr 03, 2016 22:54
[2016-04-04] VITALS: BP 139/69
[2016-04-04] MEDS: D5 1/2NS 1,000 ML IV SCH (00:23)
[2016-04-04 04:00] VITALS: BP 127/62
[2016-04-04] MEDS: Heparin 5000 units/ml inj SUBQ SCH (05:47)
[2016-04-04] MEDS: guaiFENesin 600mg tab ORAL SCH (05:47)
--- NOTE | 2016-04-04 07:30 | General Progress Note ---
Assessment/Plan Assessment/Plan Assessment/Plan Problems: (1) Fecal impaction ICD Codes: K56.41 - Fecal impaction SNOMED: 93163410 (2) Chest pain ICD Codes: R07.9 - Chest pain, unspecified SNOMED: 03806561 (3) ACS (acute coronary syndrome) ICD Codes: I24.9 - Acute ischemic heart disease, unspecified SNOMED: 351853584 (4) Parkinson disease ICD Codes: G20 - Parkinson's disease SNOMED: 75285482 (5) Abdominal pain ICD Codes: R10.9 - Unspecified abdominal pain SNOMED: 87994703 Qualifiers: Qualified Codes: R10.31 - Right lower quadrant pain (6) Hernia with strangulation ICD Codes: K46.0 - Unspecified abdominal hernia with obstruction, without gangrene SNOMED: 74781881, 486076258 Status: unchanged Assessment/Plan surgical consulted appreciated >> no need for emergency surgery, fecal impaction bowel regimen, Now with BM cardiac diet monitor H&H, transfuse prn ppi outpatient f/u with Dr. Villeda re low platelets PT d/c tomorrow if stable Subjective Allergies: Coded Allergies: PENICILLINS (Unverified Adverse Reaction, Unknown, 06/18/15) Subjective OOB in chair feels OK discussed with son at bedside no vomiting no pain (+) PO (+) BM Objective Last 24 Hour Vital Signs Date Time Temp Pulse Resp B/P Pulse Ox O2 Delivery O2 Flow Rate FiO2 04/04/16 04:00 97.6 72 16 127/62 94 Room Air 04/04/16 00:00 97.8 76 18 139/69 100 Room Air 04/03/16 20:00 97.2 70 18 143/78 97 Room Air 04/03/16 16:30 97.0 70 18 158/63 97 Room Air 04/03/16 12:09 96.4 74 18 112/78 99 Room Air 04/03/16 08:53 70 138/75 04/03/16 08:00 96.8 70 18 138/75 96 Room Air Intake and Output 04/03/16 04/04/16 19:00 07:00 Intake Total 1230 ml 1095 ml Output Total 700 ml 400 ml Balance 530 ml 695 ml Intake Oral 480 ml 420 ml IV Total 750 ml 675 ml Output Urine Total 700 ml 400 ml # Voids 2 Height (Feet): 5 Height (Inches): 6.00 Weight (Pounds): 140 Objective Elderly thin WM NCAT supple CTA RRR Soft ND NT, groins without swelling no edema non focal ANJALI LOPEZ Apr 04, 2016 07:30
[2016-04-04 08:00] VITALS: BP 137/77
[2016-04-04] MEDS: Pantoprazole Inj IV SCH (08:45)
[2016-04-04] MEDS: Amiodarone 200mg tab ORAL SCH (08:45)
[2016-04-04 08:46] VITALS: BP 137/77
[2016-04-04] MEDS: Docusate 100mg cap ORAL SCH (08:46)
[2016-04-04] MEDS: Multivitamin w/Minerals tab ORAL SCH (08:46)
[2016-04-04] MEDS: Lactulose 20gm/30ml UDC ORAL SCH (08:46)
[2016-04-04] MEDS: Sinemet 25/100 tab ORAL SCH (08:46)
[2016-04-04] MEDS: Aspirin Baby 81mg ORAL SCH (08:46)
[2016-04-04] MEDS ORDERED: SORBITOL 70%30 ML PO (11:36)
--- NOTE | 2016-04-04 11:42 | General Progress Note ---
Assessment/Plan Assessment/Plan Assessment/Plan Problems: (1) Fecal impaction ICD Codes: K56.41 - Fecal impaction SNOMED: 76163886 (2) Chest pain ICD Codes: R07.9 - Chest pain, unspecified SNOMED: 89954576 (3) ACS (acute coronary syndrome) ICD Codes: I24.9 - Acute ischemic heart disease, unspecified SNOMED: 566025464 (4) Parkinson disease ICD Codes: G20 - Parkinson's disease SNOMED: 62895047 (5) Abdominal pain ICD Codes: R10.9 - Unspecified abdominal pain SNOMED: 93339767 Qualifiers: Qualified Codes: R10.31 - Right lower quadrant pain (6) Hernia with strangulation ICD Codes: K46.0 - Unspecified abdominal hernia with obstruction, without gangrene SNOMED: 83740396, 765037791 Status: unchanged Assessment/Plan surgical consulted appreciated >> no need for emergency surgery, fecal impaction bowel regimen, Now with BM cardiac diet monitor H&H, transfuse prn ppi outpatient f/u with Dr. Villeda re low platelets PT dulcolax supp sorbitol 45 cc daily after d/c f/u with Dr. Villeda Subjective Allergies: Coded Allergies: PENICILLINS (Unverified Adverse Reaction, Unknown, 06/18/15) Subjective No BM yesterday d/w son for dc today Objective Last 24 Hour Vital Signs Date Time Temp Pulse Resp B/P Pulse Ox O2 Delivery O2 Flow Rate FiO2 04/04/16 08:46 70 137/77 04/04/16 08:00 99.0 70 20 137/77 98 Room Air 04/04/16 04:00 97.6 72 16 127/62 94 Room Air 04/04/16 00:00 97.8 76 18 139/69 100 Room Air 04/03/16 20:00 97.2 70 18 143/78 97 Room Air 04/03/16 16:30 97.0 70 18 158/63 97 Room Air 04/03/16 12:09 96.4 74 18 112/78 99 Room Air Intake and Output 04/03/16 04/04/16 19:00 07:00 Intake Total 1230 ml 1095 ml Output Total 700 ml 400 ml Balance 530 ml 695 ml Intake Oral 480 ml 420 ml IV Total 750 ml 675 ml Output Urine Total 700 ml 400 ml # Voids 2 Height (Feet): 5 Height (Inches): 6.00 Weight (Pounds): 140 Objective Elderly thin WM NCAT supple CTA RRR Soft ND NT, groins without swelling no edema non focal ANJALI LOPEZ Apr 04, 2016 11:42
[2016-04-04] MEDS ORDERED: D5 1/2NS 1000ml IV ONE (12:29)
--- NOTE | 2016-04-07 10:35 | Discharge Summary ---
Cornelius ([facility])Madelin VOCATIONAL PSYCHOLOGIST 04/07/16 1035: Discharge Summary Hospital Course Date of Admission Mar 31, 2016 at 13:05 Date of Discharge Apr 04, 2016 at 12:30 Admitting Diagnosis strangulated hernia Reason for Hospitalization: abd pain RLQ x 1 week HPI The patient is an 85-year-old [place] male, who presented with a one-week history of the right lower quadrant abdominal pain associated with a three-day history of obstipation. He denied any symptoms of nausea, vomiting, fever, or chills. He has a history of urinary incontinence. Consultations general surgery - dr Handy Hospital Course 85 y/old male with 1 week of RLQ abdominal pain associated with obstipation CT A/P done ( see below report) surgery consult requested for suspicious strangulated hernia per surgery : small left inguinal hernia appreciated, but no evidence of incarceration or strangulation. May consider elective repair ( per surgery recommendations) intensive bowel regimen instituted , eventually had BM IVF diet slowly advanced , tolerated PPI pain management antiemetic prn HH monitored, at baseline continue home medications BP stable with current regimen stable for dc fup with dr Leo as outpt CT A/P: Knuckle of urinary bladder incorporated into the left inguinal versus femoral hernia. Associated stranding is nonspecific but could represent strangulation or cystitis. No other evidence of acute abdominopelvic disease, limited by lack of oral contrast. Subtle but potentially significant abnormalities may be missed. Nonvisualization of appendix. No evidence of acute appendicitis. Previous gastric surgery, cholecystectomy, radical prostatectomy, placement of penile prosthesis, placement of pacemaker Bile duct dilation likely secondary to above. Pancreatic atrophy Bilateral renal cortical cysts Arteriosclerosis Constipation Nonspecific pulmonary bibasal interstitial prominence Cardiomegaly Degenerative spondylosis Discharge Medications Continued Medications: Amiodarone Hcl (Amiodarone Hcl) 100 Mg Tablet 100 MG ORAL DAILY, TAB Aspirin (Aspirin) 81 Mg Tab.chew 81 MG PO, TAB Carbidopa/Levodopa 25-100 Mg* (Sinemet 25-100 Mg Tablet*) 1 Each Tablet 3 TAB ORAL THREE TIMES A DAY, TAB Cyanocobalamin (Vitamin B-12) (B-12 Kit) 1,000 Mcg/1 Ml Kit 1000 MCG IJ EVERY 2 WEEKS, KIT Dexlansoprazole (Dexilant) 60 Mg Kailash.bp 60 MG ORAL DAILY, CAP Metoprolol Succinate* (Metoprolol Succinate*) 25 Mg Tab.er.24h 25 MG ORAL DAILY, TAB Mirtazapine (Remeron) 15 Mg Tab.rapdis Unknown Dose ORAL BEDTIME, TAB Montelukast Sodium* (Singulair*) 10 Mg Tablet 10 MG ORAL BEDTIME, TAB Multivitamin With Minerals (Multivitamins With Minerals*) 1 Each Tablet 1 TAB ORAL DAILY, TAB Pantoprazole* (Protonix*) 40 Mg Tablet.dr 40 MG ORAL DAILY, TAB Sorbitol (Sorbitol) 30 Ml Solution 45 ML PO DAILY, ML Warfarin Sod* (Coumadin*) 1 Mg Tablet Unknown Dose ORAL DAILY, TAB Discharge Condition Upon Discharge: improving Discharge Disposition Patient was discharged to Home () Discharge Diagnoses: (1) Fecal impaction (2) Parkinson disease (3) HTN (hypertension) (4) Abdominal pain (5) Inguinal hernia Discharge Instructions Discharge Instructions Follow up with: PMD and dr Leo as outpt Call MD/Return to Hospital if: abdominal pain persist, unable to eat, n/v/ Diet: cardiac 2 GM Na, low fat Activity: resume normal activities, as tolerated Pneumonia Vaccine: pt rcvd vaccine prior to this visit Influenza Vaccine (Jan to Jun): pt rcvd vaccine prior to this visit Special Instructions I have been assigned to complete a D/C Summary on this account. I was not involved in the patient management GISSELL LEO 04/07/16 1219: Discharge Summary Discharge Medications Continued Medications: Amiodarone Hcl (Amiodarone Hcl) 100 Mg Tablet 100 MG ORAL DAILY, TAB Aspirin (Aspirin) 81 Mg Tab.chew 81 MG PO, TAB Carbidopa/Levodopa 25-100 Mg* (Sinemet 25-100 Mg Tablet*) 1 Each Tablet 3 TAB ORAL THREE TIMES A DAY, TAB Cyanocobalamin (Vitamin B-12) (B-12 Kit) 1,000 Mcg/1 Ml Kit 1000 MCG IJ EVERY 2 WEEKS, KIT Dexlansoprazole (Dexilant) 60 Mg Kailash.bp 60 MG ORAL DAILY, CAP Metoprolol Succinate* (Metoprolol Succinate*) 25 Mg Tab.er.24h 25 MG ORAL DAILY, TAB Mirtazapine (Remeron) 15 Mg Tab.rapdis Unknown Dose ORAL BEDTIME, TAB Montelukast Sodium* (Singulair*) 10 Mg Tablet 10 MG ORAL BEDTIME, TAB Multivitamin With Minerals (Multivitamins With Minerals*) 1 Each Tablet 1 TAB ORAL DAILY, TAB Pantoprazole* (Protonix*) 40 Mg Tablet.dr 40 MG ORAL DAILY, TAB Sorbitol (Sorbitol) 30 Ml Solution 45 ML PO DAILY, ML Warfarin Sod* (Coumadin*) 1 Mg Tablet Unknown Dose ORAL DAILY, TAB Shields (Vanchtein),Madelin VIRK Apr 07, 2016 10:35 GISSELL LEO Apr 07, 2016 12:19
[2016-04-11] MEDS ORDERED: Vitamin B12 1000mcg/ml Inj IM SCH (09:00)
== END 2016-04-04 12:30 | disposition home or self-care (01) | DRG 390 ==
LOC: ENRESERV → ENRESERVDT → ENRESERVTM → EMR 11:11 → 4W 13:05 → EDBEDREQ 13:37
DX: K56.41 Fecal impaction (principal); G20 Parkinson's disease; K40.90 Unilateral inguinal hernia, without obstruction or gangrene, not specified as recurrent; I10 Essential (primary) hypertension; Z95.0 Presence of cardiac pacemaker; Z88.0 Allergy status to penicillin; J45.909 Unspecified asthma, uncomplicated; R32 Unspecified urinary incontinence; R07.9 Chest pain, unspecified
CPT/HCPCS: 36415; 74177; 80048; 80053; 81003; 83540; 83550; 83690; 83735; 84100; 85025; 87040; 87086; 93005; S0077